=== PATIENT | male | born 1990 | race Caucasian/White ===

== ENCOUNTER → 2024-02-25 19:37 | Outpatient (CLI) | payer OTHER, SELFPAY ==
--- NOTE | 2024-02-25 | DI.MRI.S_ITS ---
PROCEDURE: MR HAND LT WO CON INDICATIONS: Pain in left finger(s) TECHNIQUE: Noncontrast coronal T1 spin echo and T2 fast spin echo with fat saturation, axial proton density fast spin echo and T2 fast spin echo with fat saturation, sagittal T1 spin echo and STIR through the hand and fingers. COMPARISON: None. FINDINGS: Image quality: Excellent. Bones: Mild focal osseous edema is seen along the ulnar aspect of the 4th proximal phalangeal head. Small chronic calcification is seen at the trapezial ridge that may be the sequela of a remote prior injury. Osseous structures otherwise appear to be intact. The bones are normally aligned, without marrow contusions or fractures. No intra-osseous lesions. Soft tissues: There is thickening of the ulnar collateral ligament at the 4th proximal phalanx with mild surrounding soft tissue edema and focal fluid signal near the origin that is suspicious for partial tearing. The remaining visualized ligaments and tendons are intact. Visualized muscles demonstrate normal bulk and internal signal. No intramuscular masses identified. No ganglion cysts. IMPRESSION: Partial tearing of the ulnar collateral ligament of the 4th proximal interphalangeal joint at its proximal attachment. Mild osseous edema is seen in the adjacent portion of the 4th proximal phalangeal head. Approved by: Kael Malave M.D. on 02/26/2024 at 9:45
== END ==
PROVIDERS: Referring Provider Student in an Organized Health Care Education/Training Program; Visit Provider Student in an Organized Health Care Education/Training Program
DX: S63.635A Sprain of interphalangeal joint of left ring finger, initial encounter (principal); M79.645 Pain in left finger(s)
CPT/HCPCS: 73218

== ENCOUNTER 2024-03-14 08:11 | Outpatient (RCR) | payer OTHER, SELFPAY ==
--- NOTE | 2024-03-14 08:30 | OT.OP.TRT ---
Visit Care Team Role Provider Type Opal Akins DO Attending Provider Non-Staff Family Provider Primary Care Provider Referring Provider Specialty: Family Practice Address: [address] [place] [address], [place], [address] Fax: Email: Benedict is right hand dominant and was referred to OT secondary to L hand 4th finger w/ indication of partial tear of ulnar collateral ligament. 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 [employer] UE Outcome Measure Score = 15.91; [employer] Work Module Score = 12.5; [employer] UE Sports/Performing Arts Module Score = 25.00. Hand/Wrist Pain Assessment Grid was completed; he indicated 2 out of 10 on pain scale relative to volar surface of R 2nd digit between PIPJ and DIPJ and 5 out of 10 on pain scale relative to volar surface of L 4th digit, mid proximal phalanx -> proximal to 4th DIPJ. Given the nature of the injury, it is recommended that Benedict be seen by UE process laboratory specialist (reportedly scheduled to see on Thursday of this week 03/18/24) and subsequently evaluated and treated by [facility]. Thus, no further visits recommended.
== END 2024-03-14 14:00 | disposition home or self-care (01) ==
LOC: OT 08:11
PROVIDERS: Family Provider Student in an Organized Health Care Education/Training Program; PCP Student in an Organized Health Care Education/Training Program; Referring Provider Student in an Organized Health Care Education/Training Program; Visit Provider Student in an Organized Health Care Education/Training Program
DX: M79.645 Pain in left finger(s) (principal)